=== PATIENT | male | born 1955 | race Caucasian/White ===

== ENCOUNTER 2021-01-02 07:48 | Outpatient (REF) | payer OTHER, SELFPAY ==
[2021-01-02 08:15] LABS: COVID-19 Test Negative (Negative)
== END 2021-01-02 07:49 | disposition home or self-care (01) ==
LOC: HO.LAB 07:48
PROVIDERS: Visit Provider Internal Medicine
DX: Z20.822 Contact with and (suspected) exposure to COVID-19 (principal)
CPT/HCPCS: 36415; 87635; C9803

== ENCOUNTER 2021-11-12 10:51 | Outpatient (REF) | payer SELFPAY ==
--- NOTE | ~2021-11-12 | XR_ITS ---
EXAMINATION: XR HAND, LEFT CLINICAL INFORMATION: Puncture wound with wood. COMPARISON: None TECHNIQUE: PA, lateral, and oblique views of the left hand. FINDINGS: No acute or healing fracture, dislocation, or destructive process. No visible soft tissue radiopaque foreign body. No gas tracking in soft tissues. Normal bony mineralization. No joint narrowing or erosive change or chondrocalcinosis. The ulnar variance is neutral. Small benign circumscribed cyst seen distal ulnar and there is a small circumscribed cyst head second metacarpal. XR/XR hand LT 2V IMPRESSION: -No visible radiopaque soft tissue foreign body or gas tracking in soft tissues. -No fracture or destructive process.
== END 2021-11-12 10:52 | disposition home or self-care (01) ==
LOC: HO.HMGCX 10:51
PROVIDERS: Visit Provider Internal Medicine
DX: S60.552A Superficial foreign body of left hand, initial encounter (principal)
CPT/HCPCS: 73120

== ENCOUNTER 2023-07-25 09:43 | Outpatient (AMB) | payer MEDICARE, SELFPAY ==
--- NOTE | 2023-07-25 09:44 | A.OFFPC_ITS ---
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 Accompanied by: Self / Same As Patient Allergies No Known Allergies Allergy (Verified 07/25/23 09:46) Tobacco use date assessed: 07/25/23 Fall risk assessment: No Falls in past year Last assessed Fall Risk: 07/25/23 Dental Screening Dental Screen Date: 07/25/23 Did you have a dental visit in the last 12 months?: No Did you have a dental problem in the last 6 months where you did not have access to dental care?: No Was dental information given to patient?: Patient has dentist HPI new patient HPI Details healthy but a 40 year smoker PFSH Family History (Updated 07/25/23 @ 09:58 by JESENIA Ndiaye) Father Alcohol abuse Hypertension Social History (Updated 07/25/23 @ 10:05 by JESENIA Ndiaye) Housing: House Patient Tobacco Use Status: Former Tobacco user Tobacco use type: Cigarette Cigarettes Per Day: 20 Substance Use Type: Crack/Cocaine and Former Substance User Current occupational status: employed Cognitive needs: No Hearing needs: No Vision needs: Yes (glasses ) Questionnaire PHQ-9 Over the last 2 weeks, how often have you been bothered by any of the following problems? 1. Little interest or pleasure in doing things: not at all 2. Feeling down, depressed, or hopeless: not at all 3. Trouble falling or staying asleep, or sleeping too much: not at all 4. Feeling tired or having little energy: not at all 5. Poor appetite or overeating: not at all 6. Feeling bad about yourself - or that you are a failure or have let yourself or your family down: not at all 7. Trouble concentrating on things, such as reading the newspaper or watching television: not at all 8. Moving or speaking so slowly that other people could have noticed. Or the opposite - being so fidgety or restless that you have been moving around a lot more than usual: not at all 9. Thoughts that you would be better off or of hurting yourself in some way: not at all Total score: 0 Source: Developed by Drs. Sanjeev Cha, Sheila Cedillo, Prateek Macias and colleagues, with an educational marlena from [employer]. Thrive Questionnaire Date Thrive assessed: 07/25/23 I am a: Patient What is your living situation today?: I have a steady place to live Within the past 12 months, did the food you bought not last and you didn't have the money to get more?: Never true Within the past 12 months, did you worry whether your food would run out before you got money to buy more?: Never true Do you have trouble paying for medicines?: No Do you have trouble getting transportation to medical appointments?: No Do you have trouble paying your heating and electricity bill?: No Do you have trouble taking care of your child, family member or friend?: No Do you have trouble with day-to-day activities such as bathing, preparing meals, shopping, managing finances, etc.?: No Are you currently unemployed and looking for a job?: No Are you interested in more education?: No Please select the resources that you would like help with: None THRIVE Score: 0 AUDIT C Alcohol Use Questionnaire (AUDIT-C) 1. How often do you have a drink containing alcohol?: Never Total Score: 0 CHAITANYA-7 AMB Questionnaire CHAITANYA-7 Date CHAITANYA - 7 assessed: 07/25/23 Feeling nervous, anxious, or on edge: 0 = Not at all Not being able to stop or control worryin = Not at all Worrying too much about different things: 0 = Not at all Trouble relaxin = Not at all Being so restless that it is hard to sit still: 0 = Not at all Becoming easily annoyed or irritable: 0 = Not at all Feeling afraid as if something awful might happen: 0 = Not at all Total CHAITANYA-7 score (0-4 normal; 5-9 mild; 10-14 moderate; 15-21 severe): 0 Source: Developed by Drs. Sanjeev Cha, Prateek Hanson and colleagues, with an educational marlena from [employer]. Review of Systems Const Denies chills, Denies fatigue, Denies headache(s) and Denies weight loss Eyes Denies change in vision, Denies diplopia and Denies eye pain ENT Reports Normal hearing present, Denies vertigo, Denies dizziness, Denies headache(s) and Denies nasal discharge Card Denies chest pain, Denies rapid heart rate and Denies dyspnea on exertion Resp Denies chest congestion, Denies cough, Denies pain with cough and Denies dyspnea on exertion GI Denies abdominal pain, Denies hematochezia and Denies change in bowel habits Musc Denies myalgias, Denies arthralgias and Denies joint swelling Skin/Breast Denies lesions and Denies unusual bruising Neuro Reports Normal hearing present, Denies vertigo, Denies dizziness, Denies headache(s) and Denies focal weakness Endo Denies fatigue Physical exam (Primary Care) Vital Signs: Last Vital Signs Pulse 75 07/25/23 09:45 BP 146/70 H 07/25/23 09:45 Pulse Ox 98 07/25/23 09:45 Oxygen Delivery Method Room Air 07/25/23 09:45 BMI result Body Mass Index 25.1 Tobacco/Smoking Status: Tobacco use Status Tobacco use date assessed 07/25/23 07/25/23 09:46 Patient Tobacco Use Status Former Tobacco user 07/25/23 10:05 Tobacco use type Cigarette 07/25/23 10:05 PHQ-9: PHQ-9 Score PHQ-9: Total score 0 07/25/23 10:00 Thrive Assessment: Date of Thrive Assessment Date Thrive assessed 07/25/23 07/25/23 09:46 Const General: cooperative, healthy appearing, comfortable and no acute distress [facility] Head: Yes normocephalic and Yes atraumatic Eyes General: appearance normal, both eyes and all related structures Neck Neck: Yes full ROM and Yes no lymphadenopathy Resp Effort & Inspection: normal respiratory effort Auscultation: clear to auscultation bilaterally Percussion: percussion normal Cardio Jugular venous distension: no JVD Palpation: normal PMI Rate: regular rate Rhythm: regular rhythm Heart sounds: S1 normal heart sound present and S2 normal heart sound present GI Inspection: Yes normal to inspection Palpation (GI): No hepatosplenomegaly present Auscultation: normal bowel sounds Skin Lesions: no lesions Rashes: no rashes Neuro Cranial nerves: Yes Normal hearing present Extrem General: Yes no clubbing, cyanosis or edema Assessment and Plan Assessment & Plan (1) Physical exam: Code(s): Z00.00 - Encounter for general adult medical examination without abnormal findings Plan: labs Orders: Orders Lipid Panel Today E78.5 - Hyperlipidemia, unspecified Complete Blood Count Auto Diff Today D64.9 - Anemia, unspecified Comprehensive [place]. Panel Fast Today N28.9 - Disorder of kidney and ureter, unspecified Prostate Specific Antigen Scr Today Z00.00 - Encounter for general adult medical examination without abnormal findings Referrals Gastroenterology Referral Z12.11 - Encounter for screening for malignant neoplasm of colon Thoracic Surgery Referral F17.200 - Nicotine dependence, unspecified, uncomplicated Coding Level of Care Code Est Pt Prev Care >65y(46557) Diagnoses Physical exam Z00.00
[2023-07-25 09:45] VITALS: BP 146/70; PULSE 75; O2SAT 98; BMI 25.1
== END 2023-07-25 10:19 | disposition home or self-care (01) ==
PROVIDERS: Visit Provider Internal Medicine
DX: Z00.00 Encounter for general adult medical examination without abnormal findings (principal)
CPT/HCPCS: 99397

== ENCOUNTER 2023-10-26 08:49 | Outpatient (AMB) | payer MEDICARE, SELFPAY ==
[2023-10-26 08:50] VITALS: BP 130/80; PULSE 85; O2SAT 98; BMI 24.3
--- NOTE | 2023-10-26 08:50 | MHC.PC.OV ---
Vital Signs 10/26/23 08:50 Height 5 ft 11 in Weight 174 lb BMI 24.3 BP 130/80 Blood Pressure Location Lt brachial Position Sitting Pulse 85 Pulse Source Pulse Oximeter Pulse Oximetry (%) 98 Oxygen Delivery Method Room Air Intake Visit Reasons: 3mth f/u Disease Management Nurse: Not Required per policy Accompanied by: Self / Same As Patient Allergies No Known Allergies Allergy (Verified 07/25/23 09:46) Tobacco use date assessed: 07/25/23 Fall risk assessment: No Falls in past year Last assessed Fall Risk: 10/26/23 Dental Screening Dental Screen Date: 07/25/23 HPI 3mth f/u HPI Details smoker and has ct scheduled; feels well [facility] Medical History (Updated 10/18/23 @ 14:31 by Rafia Rangel PA-C) Nicotine dependence, cigarettes, uncomplicated Family History Father Alcohol abuse Hypertension Social History (Updated 07/25/23 @ 10:05 by JESENIA Ndiaye) Housing: House Patient Tobacco Use Status: Former Tobacco user Tobacco use type: Cigarette Cigarettes Per Day: 20 Substance Use Type: Crack/Cocaine and Former Substance User Current occupational status: employed Cognitive needs: No Hearing needs: No Vision needs: Yes (glasses ) Questionnaire Thrive Questionnaire Date Thrive assessed: 07/25/23 CHAITANYA-7 AMB Questionnaire CHAITANYA-7 Date CHAITANYA - 7 assessed: 07/25/23 Source: Developed by Drs. Sanjeev Cha, Sheila Cedillo, Prateek Macias and colleagues, with an educational marlena from [email or web address]. Review of Systems Const Denies chills, Denies headache(s) and Denies weight loss ENT Denies headache(s) Card Denies chest pain, Denies syncope, Denies irregular heart rhythm and Denies dyspnea Resp Denies chest congestion, Denies cough and Denies dyspnea GI Denies abdominal pain, Denies change in stool character, Denies nausea and Denies vomiting Musc Denies deformity and Denies joint swelling Neuro Denies syncope and Denies headache(s) Physical exam (Primary Care) Vital Signs: Last Vital Signs Pulse 85 10/26/23 08:50 BP 130/80 10/26/23 08:50 Pulse Ox 98 10/26/23 08:50 Oxygen Delivery Method Room Air 10/26/23 08:50 BMI result Body Mass Index 24.3 Tobacco/Smoking Status: Tobacco use Status Tobacco use date assessed 07/25/23 10/26/23 08:52 Patient Tobacco Use Status Former Tobacco user 10/26/23 08:52 Tobacco use type Cigarette 10/26/23 08:52 Thrive Assessment: Date of Thrive Assessment Date Thrive assessed 07/25/23 10/26/23 08:52 Const General: cooperative, comfortable, no acute distress and alert Neck Neck: Yes no lymphadenopathy Thyroid: Thyroid normal Resp Effort & Inspection: normal respiratory effort Auscultation: clear to auscultation bilaterally Percussion: percussion normal Cardio Jugular venous distension: no JVD Palpation: normal PMI Rate: regular rate Rhythm: regular rhythm Heart sounds: S1 normal heart sound present and S2 normal heart sound present GI Inspection: Yes normal to inspection Palpation (GI): No hepatosplenomegaly present Skin General skin exam: no rashes or lesions noted Extrem General: Yes no clubbing, cyanosis or edema Assessment and Plan Assessment & Plan (1) Smoker: Code(s): F17.200 - Nicotine dependence, unspecified, uncomplicated Plan: advised to stop; screening ct pending; do labs Coding Level of Care Code Est Pt Level 3 (18216) Diagnoses Smoker F17.200
== END 2023-10-26 09:05 | disposition home or self-care (01) ==
PROVIDERS: Visit Provider Internal Medicine
DX: F17.200 Nicotine dependence, unspecified, uncomplicated (principal)
CPT/HCPCS: 99213

== ENCOUNTER 2023-11-25 09:12 | Outpatient (AMB) | payer MEDICARE, SELFPAY ==
--- NOTE | 2023-11-25 07:50 | MHC.OFFVIS ---
Intake Visit Reasons: Current Smoker Intake Note: Initial visit for this 68yo smoker with a 50PYH. Patient has been smoking since age 18 for 50 years at 1ppd. . Denies marijuana use. Reports social second hand smoke exposure. 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 . Denies known family history of lung cancer. Denies personal history of cancers. Denies chest CT in last year. . Denies recent travel outside the [place]. Denies recent respiratory illness or recent hospitalization for respiratory issues. Denies testing positive for COVID. Admits receiving COVID Vaccine. x3. . Male, >50yo, smoker, +snoring, +fatigue - multiple risk factors for JAZMIN - advised discussing Sleep testing. He will discuss with PCP. Smoker are at higher risk. Denies fever, chills, new/worsening cough, hemoptysis, hoarseness or dysphagia. Denies significant chest pain, significant dyspnea or unintentional weight loss. Patient Lung Cancer Screening Questionnaire reviewed with patient by provider. . Shared Decision Making Completed. Patient meets criteria. Discussed in detail with patient, the risk vs benefit of LDCT screening. Patient consents to proceed with scan. Discussed smoking cessation. Allergies No Known Allergies Allergy (Verified 07/25/23 09:46) [facility] Medical History (Updated 11/25/23 @ 09:42 by Rafia Rangel PA-C) Nicotine dependence, cigarettes, uncomplicated Family History Father Alcohol abuse Hypertension Social History (Updated 11/25/23 @ 09:43 by Rafia Rangel PA-C) Housing: House Patient Tobacco Use Status: Current everyday Tobacco user Tobacco use type: Cigarette Cigarettes Per Day: 20 Years Smoked: onset 18yo, 1ppd x 50yrs, 50pyh Substance Use Type: Crack/Cocaine and Former Substance User Current occupational status: employed Cognitive needs: No Hearing needs: No Vision needs: Yes (glasses ) Assessment & Plan Assessment & Plan (1) Nicotine dependence, cigarettes, uncomplicated: Comment: (current smoker - onset 18yo, 1ppd x 50yrs, 50pyh) Code(s): F17.210 - Nicotine dependence, cigarettes, uncomplicated Category: Medical Plan: - SDM visit completed today in office. - Patient meets criteria for LDCT for lung cancer screening purposes and is asymptomatic. - Smoking cessation counseling offered. Patients can always call [phone]. - Will arrange for a LDCT scan of the chest for screening purposes at [facility]. - Risks, benefits, and alternatives were discussed in detail and the patient agrees to proceed. - Risks discussed include but are not limited to: radiation exposure, anxiety during testing and while awaiting results, false negatives, false positives and possibility of additional intervention such as further imaging or surgical procedures for benign disease. - Benefits are obviously detection of lung cancer at an early stage which can lead to improved outcomes. - Discussed the importance of screening program compliance with adherence to yearly LDCT scan as scheduled - or sooner interval scans for personalized screening regimen. - Discussed follow up plan. Our office will send a letter discussing results and if needed set up phone call and office visit based on CT findings. - Patient educated on results categorization and the management decisions for suspicious findings potentially found on the screening LDCT scan. Any patient with a Lung RADS score of 3 or 4 will be reviewed by a multidisciplinary team at [facility] to form a plan of action in regards to scan findings. - If further work up is warranted for a suspicious lung finding this will be followed by the Lung Cancer Screening program in conjunction with the Thoracic Surgery Department at [facility]. - A copy of the office note and LDCT will be sent to the patient's PCP - as well as documentation on any associated further plans of care. - Incidental findings on LDCT are the PCP's responsibility. These findings are indicated with an S finding on the LDCT Assessment. A note discussing the findings will be sent to the PCP who is then responsible for further management. - All questions answered.? Coding Level of Care Code Lung Cancer Screening G0296 Diagnoses Nicotine dependence, cigarettes, uncomplicated F17.210
== END 2023-11-25 09:44 | disposition home or self-care (01) ==
PROVIDERS: PCP Internal Medicine; Referring Provider Internal Medicine; Visit Provider Physician Assistant Medical
DX: F17.210 Nicotine dependence, cigarettes, uncomplicated (principal)
CPT/HCPCS: G0296

== ENCOUNTER 2023-11-25 09:41 | Outpatient (REF) | payer MEDICARE, SELFPAY ==
--- NOTE | ~2023-11-25 | CT_ITS ---
EXAMINATION: CT LOW-DOSE SCREENING CHEST WITHOUT CONTRAST CLINICAL INFORMATION: Nicotine dependence, cigarettes, uncomplicated. The patient is a current smoker with a 48 pack-year history of smoking. COMPARISON: None available. TECHNIQUE: Multidetector volumetric CT imaging of the chest is performed on a Siemens SOMATOM Definition scanner without contrast using low dose technique. Additional 2D coronal and sagittal reformatted images and axial 3D maximum intensity projection (MIP) images are generated on the CT workstation. This CT examination was performed using dose optimization techniques as appropriate, variously including the following: *Automated exposure control *Adjustment of mA and/or kV according to patient size (this includes techniques or standardized protocols for targeted exams where dose is matched to indication/reason for exam; i.e. extremities or head) *Use of iterative reconstruction technique TOTAL EXAM DLP: 48 mGy-cm. CTDIvol: 1.28 mGy. FINDINGS: PULMONARY NODULES: No suspicious pulmonary nodules. LUNGS: Lungs bilaterally symmetrically expanded. There is minimal emphysema and bronchial thickening. No effusion or pneumothorax. Central airways patent. MEDIASTINUM: No mediastinal, hilar or axillary adenopathy or free fluid collection. CORONARY ARTERY CALCIFICATION: Minimal. THYROID GLAND: Unremarkable to the extent seen. CARDIOVASCULAR STRUCTURES: Aortic and heart size normal. No pericardial effusion. CHEST WALL/AXILLA: Unremarkable. UPPER ABDOMEN: There is a fat density 3.5 x 2.5 x 2.8 cm right adrenal mass present consistent with a benign adenoma. No additional imaging or followup. A smaller 1.3 x 0.8 cm adenoma present on the left which also needs no additional imaging or followup. OSSEOUS STRUCTURES: No suspicious focal findings. CT/CT lung screening IMPRESSION: 1. No suspicious pulmonary nodules are seen. 2. Incidental findings as described above. ASSESSMENT: 1. Lung-RADS Category 1: Negative. There are no nodules or there are definitely benign nodules. N/A 2. Lung-RADS Category S: Negative. There are no clinically significant or potentially clinically significant findings not related to the lungs requiring urgent additional evaluation. RECOMMENDATION: Continued routine annual low-dose CT lung screening in 1 year is recommended. An order for CT CHEST LOW DOSE CANCER SCREENING ([id number]) can be placed. Electronically signed by: Nathanael Velazquez MD 01/12/2024 10:19 PM EDT
== END 2023-11-25 09:42 | disposition home or self-care (01) ==
LOC: HO.CT 09:41
PROVIDERS: Visit Provider Physician Assistant Medical
DX: Z12.2 Encounter for screening for malignant neoplasm of respiratory organs (principal); F17.210 Nicotine dependence, cigarettes, uncomplicated
CPT/HCPCS: 71271; G0296

== ENCOUNTER 2024-01-27 08:26 | Outpatient (AMB) | payer MEDICARE, SELFPAY ==
[2024-01-27 08:36] VITALS: BP 146/70; PULSE 71; O2SAT 97; BMI 25.0
--- NOTE | 2024-01-27 08:36 | A.OFFPC_ITS ---
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 Accompanied by: Self / Same As Patient Allergies No Known Allergies Allergy (Verified 01/27/24 08:38) Tobacco use date assessed: 07/25/23 Fall risk assessment: No Falls in past year Last assessed Fall Risk: 01/27/24 Dental Screening Dental Screen Date: 07/25/23 HPI 3 Month F/U HPI Details BP elevated PFSH Medical History (Updated 11/25/23 @ 09:42 by Rafia Rangel PA-C) Nicotine dependence, cigarettes, uncomplicated Family History Father Alcohol abuse Hypertension Social History (Updated 11/25/23 @ 09:43 by Rafia Rangel PA-C) Housing: House Patient Tobacco Use Status: Current everyday Tobacco user Tobacco use type: Cigarette Cigarettes Per Day: 20 Years Smoked: onset 18yo, 1ppd x 50yrs, 50pyh e-Cigarette/Vaping Use: Never Used Substance Use Type: Crack/Cocaine and Former Substance User Current occupational status: employed Cognitive needs: No Hearing needs: No Vision needs: Yes (glasses ) Questionnaire PHQ-9 Over the last 2 weeks, how often have you been bothered by any of the following problems? 1. Little interest or pleasure in doing things: not at all 2. Feeling down, depressed, or hopeless: not at all 3. Trouble falling or staying asleep, or sleeping too much: not at all 4. Feeling tired or having little energy: not at all 5. Poor appetite or overeating: not at all 6. Feeling bad about yourself - or that you are a failure or have let yourself or your family down: not at all 7. Trouble concentrating on things, such as reading the newspaper or watching television: not at all 8. Moving or speaking so slowly that other people could have noticed. Or the opposite - being so fidgety or restless that you have been moving around a lot more than usual: not at all 9. Thoughts that you would be better off or of hurting yourself in some way: not at all Total score: 0 Source: Developed by Drs. Sanjeev Cha, Prateek Hanson and colleagues, with an educational marlena from [email or web address]. Thrive Questionnaire Date Thrive assessed: 07/25/23 Are you currently unemployed and looking for a job?: No AUDIT C Alcohol Use Questionnaire (AUDIT-C) 2. How many drinks containing alcohol do you have on a typical day when you are drinking?: 1 or 2 3. How often do you have six or more drinks on one occasion?: Never Total Score: 0 CHAITANYA-7 AMB Questionnaire CHAITANYA-7 Date CHAITANYA - 7 assessed: 07/25/23 Source: Developed by Drs. Sanjeev Cha, Sheila Cedillo, Prateek Macias and colleagues, with an educational marlena from [email or web address]. Review of Systems Const Denies chills, Denies headache(s) and Denies weight loss ENT Denies headache(s) Card Denies chest pain, Denies syncope, Denies irregular heart rhythm and Denies dyspnea Resp Denies chest congestion, Denies cough and Denies dyspnea GI Denies abdominal pain, Denies change in stool character, Denies nausea and Denies vomiting Musc Denies deformity and Denies joint swelling Neuro Denies syncope and Denies headache(s) Physical exam (Primary Care) Vital Signs: Last Vital Signs Pulse 71 01/27/24 08:36 BP 146/70 H 01/27/24 08:36 Pulse Ox 97 01/27/24 08:36 Oxygen Delivery Method Room Air 01/27/24 08:36 BMI result Body Mass Index 25.0 Tobacco/Smoking Status: Tobacco use Status Tobacco use date assessed 07/25/23 01/27/24 08:37 Patient Tobacco Use Status Current everyday Tobacco 01/27/24 08:37 Tobacco use type Cigarette 01/27/24 08:37 e-Cigarette/Vaping Use Never Used 01/27/24 08:40 PHQ-9: PHQ-9 Score PHQ-9: Total score 0 01/27/24 08:43 Thrive Assessment: Date of Thrive Assessment Date Thrive assessed 07/25/23 01/27/24 08:37 Const General: cooperative, comfortable, no acute distress and alert Neck Neck: Yes no lymphadenopathy Thyroid: Thyroid normal Resp Effort & Inspection: normal respiratory effort Auscultation: clear to auscultation bilaterally Percussion: percussion normal Cardio Jugular venous distension: no JVD Palpation: normal PMI Rate: regular rate Rhythm: regular rhythm Heart sounds: S1 normal heart sound present and S2 normal heart sound present GI Inspection: Yes normal to inspection Palpation (GI): No hepatosplenomegaly present Skin General skin exam: no rashes or lesions noted Extrem General: Yes no clubbing, cyanosis or edema Assessment and Plan Assessment & Plan (1) Elevated BP without diagnosis of hypertension: Code(s): R03.0 - Elevated blood-pressure reading, without diagnosis of hypertension Plan: monitor BP; do labs Orders: Referrals Lung Cancer Screening Referral F17.210 - Nicotine dependence, cigarettes, uncomplicated Coding Level of Care Code Est Pt Level 3 (51439) Diagnoses Elevated BP without diagnosis of hypertension R03.0
== END 2024-01-27 08:56 | disposition home or self-care (01) ==
PROVIDERS: PCP Internal Medicine; Visit Provider Internal Medicine
DX: R03.0 Elevated blood-pressure reading, without diagnosis of hypertension (principal)

== ENCOUNTER → 2024-01-27 08:26 | Outpatient (BNVA) | payer MEDICARE, SELFPAY | PROVIDERS: PCP Internal Medicine; Visit Provider Internal Medicine | DX: R03.0 Elevated blood-pressure reading, without diagnosis of hypertension (principal); F17.210 Nicotine dependence, cigarettes, uncomplicated; Z71.6 Tobacco abuse counseling | CPT/HCPCS: 96127; 99212 ==